=== PATIENT | female | born 1965 | race American Indian/Alaskan Native ===

== ENCOUNTER 2017-10-05 07:27 | Emergency (ER) | payer MEDICAID ==
[2017-10-05] MEDS ORDERED: DECADRON IM STA (09:25)
[2017-10-05] MEDS ORDERED: TORADOL IM ONE (09:25)
--- NOTE | 2017-10-05 09:25 | Emergency Department Report ---
HPI - General Chief Complaint: Extremity Problem,Nontraumatic Time Seen by Provider: 10/05/17 08:23 - HPI HPI: Patient brought to hospital by EMS. Patient said she is homeless and was at [facility] and absolutely so called 911. They brought her to the emergency room. She says she came to the emergency room to be evaluated by for high blood pressure and knee pain. Patient should she was on lisinopril and amlodipine but she ran out. She says she doesn't have a primary care present. Patient also has a history of osteoarthritis, asthma, HIV which she says she has for 18 years and she has never been on medication. She says she used the follow-up but her insurance ran out or lapsed so she doesn't have anywhere to go follow up now. Patient also has a history of hypertension and hepatitis B and hepatitis C. Denies any nausea or vomiting. She states that she was seen spots in that flushing or blood pressure is elevated. Denies any fever or chills or headache. Denies any numbness or tingling to extremities. Denies any chest pain or shortness of breath. She is having and pain to both her knees where she said she has osteoarthritis and it started about a 10 and achy worse with movement better with resting. No medication taken. Patient says that usually when the weather is cold or that's when her arthritis flares up. ED Past Medical Hx - Past Medical History Previous Medical History?: Yes Hx Hypertension: Yes (ran out of medication) Hx Arthritis: Yes Hx Asthma: Yes Hx HIV: Yes (18 years and has not been on any medication.) Additional medical history: HEB B/Heb c - Surgical History Past Surgical History?: No - Family History Family history: hypertension - Social History Smoking Status: Current Every Day Smoker Substance Use Type: Alcohol - Medications Home Medications: Home Medications Medication Instructions Recorded Confirmed Last Taken Type Azithromycin [Zithromax TAB] 250 mg PO QDAY #5 tablet 05/11/15 Unknown Rx Benzonatate [Tessalon Perles] 100 mg PO Q8HR #20 capsule 05/11/15 Unknown Rx Phenylephrine/Dm/Acetaminop/GG 20 ml PO Q4H #177 cc 05/11/15 Unknown Rx [Mucinex Hjvo-Vba-Fgetoqnigz Lq] Amlodipine Besylate [Norvasc] 10 mg PO QAM 30 Days #30 tablet 10/05/17 Unknown Rx Lisinopril [Zestril] 20 mg PO QAM 30 Days #30 tablet 10/05/17 Unknown Rx traMADol [Ultram] 50 mg PO Q6HR PRN #12 tablet 10/05/17 Unknown Rx ED Review of Systems ROS: Stated complaint: HYPERTENSIVE Other details as noted in HPI Comment: All other systems reviewed and negative Constitutional: other (elevated blood pressure) Eyes: denies: eye pain, eye discharge ENT: denies: throat pain, congestion Respiratory: no symptoms reported Cardiovascular: denies: chest pain, palpitations, dyspnea on exertion, orthopnea , edema, syncope, paroxysmal nocturnal dyspnea Gastrointestinal: denies: abdominal pain, nausea, vomiting, diarrhea, constipation, hematemesis, melena, hematochezia Genitourinary: denies: dysuria, hematuria Musculoskeletal: arthralgia. denies: back pain, joint swelling, myalgia Skin: denies: rash Neurological: denies: headache, weakness, numbness, paresthesias, confusion, abnormal gait, vertigo Physical Exam - Physical Exam Vital Signs: Vital Signs 10/05/17 07:31 Temperature 99.1 F Pulse Rate 100 H Respiratory 16 Rate Blood Pressure 183/110 O2 Sat by Pulse 100 Oximetry Vital Signs 10/05/17 10/05/17 10/05/17 07:31 09:49 10:48 Temperature 99.1 F Pulse Rate 100 H 100 H 87 Respiratory 16 20 Rate Blood Pressure 183/110 183/110 Blood Pressure 155/104 [Left] O2 Sat by Pulse 100 Oximetry 10/05/17 11:25 Temperature Pulse Rate 87 Respiratory Rate Blood Pressure 155/104 Blood Pressure [Left] O2 Sat by Pulse Oximetry General: This is a 52-year-old female well-nourished well-developed. Patient's homeless. She is nontoxic in appearance. Physical Exam: Head: Normocephalic, atraumatic Eyes: Biateral pupils equal and reactive to light, bilateral EOM intact.. Bilateral conjunctival and sclera without injection, normal accommodation. No nystagmus Mouth: Mucosa moist, no pharyngeal exudate or erythema. No peritonsillar abscesses. Uvula is midline and oral airways patent. Ears: Bilateral TMs pearly dowling Bilateral EAC without any redness swelling or drainage. No mastoid bone tenderness Nose: nasal mucosa normal ,Maxillary and frontal sinuses non-tender to palpate. Neck: Supple, No Cervical adenopathy, full range of motion and no C-spine tenderness. No swelling or tracheal deviation normal reflexes Cardiovascular: S1, S2. Regular rate and rhythm. No murmur. Capillary refill is less then 3 seconds. Blood pressure 183/110 Lungs: Clear to auscultate bilaterally. No rhonchi, wheezes or rales. No chest wall tenderness. No chest contusion. No bruising to chest. MSK: Strength 5/5 in all extremities. DIP and MIP joint deformity ,positive crepitus lateral knee. Full range of motion to all extremities. No laceration , abrasion or ecchymotic area noted. Abdomen: Non-tender to palpate in all quadrants, no guarding or rebound tenderness, positive bowel sounds in all quadrants. No CVA tenderness. No hernia, bruit or mass. No rigidity or distention. Extremities: No clubbing, cyanosis or edema. +2 pulses. No neurovascular compromise Skin: Clean, dry and intact. No rash or lesions. Neurological: GCS at 15, Pt is alert and oriented 3 speech is clear . 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 Normal gait. Negative Romberg and no pronator drift. Normal Reflexes. No motor or sensory deficit Back: No vertebral tenderness, no paraspinal tenderness. Ambulates without any difficulties. Psych: Normal mood and behavior ED Course Vital Signs 10/05/17 07:31 Temperature 99.1 F Pulse Rate 100 H Respiratory 16 Rate Blood Pressure 183/110 O2 Sat by Pulse 100 Oximetry Vital Signs 10/05/17 10/05/17 10/05/17 07:31 09:49 10:48 Temperature 99.1 F Pulse Rate 100 H 100 H 87 Respiratory 16 20 Rate Blood Pressure 183/110 183/110 Blood Pressure 155/104 [Left] O2 Sat by Pulse 100 Oximetry 10/05/17 11:25 Temperature Pulse Rate 87 Respiratory Rate Blood Pressure 155/104 Blood Pressure [Left] O2 Sat by Pulse Oximetry - Reevaluation(s) Reevaluation #1: 10/05/17 09:45 Patient given clonidine 0.2 mg in the emergency room for elevated blood pressure and plan to recheck prior to discharge, Toradol 60 mg IM and Decadron 10 mg IM for osteoarthritis pain to both knees. Reevaluation #2: 10/05/17 11:31 Patient is stable. Blood pressure is better. She was given amlodipine and lisinopril dose in emergency room. I discussed the patient that she needs to [facility] with [facility] a primary care center ED Medical Decision Making - Medical Decision Making ED course: Patient here reports that her blood pressure is elevated and she is homeless that she is having arthritis flareup in her knees. She was given Toradol 60 mg IM and Decadron 10 mg IM for arthritic pain which helped her pain. Patient was also given clonidine 0.2 mg which helped her blood pressure but diastolic was still mildly elevated. I gave her her dose of lisinopril 20 mg by mouth and amlodipine 10 mg by mouth in emergency room. I discussed patient that she will need to follow-up with [facility] to manage her chronic medical problems and also with Dr. Rodriguez's orthopedic doctor to manage her chronic osteoarthritis. Patient is homeless. She is able to tolerate oral liquids in emergency room without any difficulties. Patient discharged home in stable condition with prescription for lisinopril and amlodipine and also Ultram for her chronic arthritis pain. I also discussed patient that she needs to follow-up with [facility] so they can referred to infectious disease specialist regarding her HIV that she has for 18 years without been on medication. Critical care attestation.: If time is entered above; I have spent that time in minutes in the direct care of this critically ill patient, excluding procedure time. ED Disposition Clinical Impression: Arthralgia of both knees, Elevated blood pressure reading with diagnosis of hypertension Disposition: DC-01 TO HOME OR SELFCARE Is pt being admited?: No Does the pt Need Aspirin: No Condition: Stable Instructions: Hypertension (ED), Arthralgia (ED), Osteoarthritis (ED), Heart Healthy Diet (ED), DASH Eating Plan (ED), Low Sodium Diet (ED) Additional Instructions: Please follow up with outside Medical Center to manage chronic medical problem. Please have them refer you to infectious disease specialist for management of HIV. I'll also refer you to infectious disease specialist, please see discharge instruction paperwork for details. Take Ultram for chronic arthritic pain but please do not drive or operate heavy machinery while taking this medication as it causes drowsiness Increase your fluid intake Please ensure that you take your blood pressure medication as prescribed and these medication or free at [facility]. Keep a log of your blood pressure and take to primary care visit with you. Increase your fluid intake. Prescriptions: Amlodipine Besylate [Norvasc] 10 mg PO QAM 30 Days #30 tablet Lisinopril [Zestril] 20 mg PO QAM 30 Days #30 tablet traMADol [Ultram] 50 mg PO Q6HR PRN #12 tablet PRN Reason: Pain Referrals: [facility] [Outside] - 10/08/17 [facility] [Outside] - 3-5 Days [facility] [Outside] - 3-5 Days [facility] [Outside] - 3-5 Days [facility] [Outside] - [facility] - [facility]5 Days [facility] [Primary Care Provider] - 10/08/17
[2017-10-05] MEDS ORDERED: CATAPRES PO ONE (09:26)
[2017-10-05 10:48] VITALS: BP 155/104
[2017-10-05] MEDS ORDERED: NORVASC PO ONE (10:58)
[2017-10-05] MEDS ORDERED: ZESTRIL PO ONE (10:58)
== END 2017-10-05 12:25 | disposition home or self-care (01) ==
LOC: ED 07:27
DX: I10 Essential (primary) hypertension (principal); J45.909 Unspecified asthma, uncomplicated; Z86.19 Personal history of other infectious and parasitic diseases; F17.200 Nicotine dependence, unspecified, uncomplicated; M19.90 Unspecified osteoarthritis, unspecified site; Z59.0 Homelessness
CPT/HCPCS: 96372; 99283; J1100; J1885